=== PATIENT | male | born 1945 | race Caucasian/White ===

== ENCOUNTER 2021-09-21 10:28 | Emergency (ER) | payer MEDICARE, BC ==
[~2021-09-21] VITALS: Ht 177.8 cm; Wt 80.7 kg
--- NOTE | 2021-09-21 10:30 | NUR ---
Patient ambulatory, alert and orientedx4 with complaints of palpitations this morning. Denies nausea/vomiting,SOB,chest pain. History of Afib and hypertension.
--- NOTE | 2021-09-21 10:31 | NUR ---
MD at bedside, medical screening exam in progress.
[2021-09-21] MEDS ORDERED: APIX5TAB4 PO (10:54)
[2021-09-21] MEDS ORDERED: PROP150T2 PO (10:54)
[2021-09-21] MEDS ORDERED: ROSU10TA2 PO (10:54)
[2021-09-21] MEDS ORDERED: CLON0.1T PO (10:54)
[2021-09-21] MEDS ORDERED: DILT30TA35 PO (10:54)
[2021-09-21] MEDS ORDERED: DOXY100C5 PO (10:54)
[2021-09-21] MEDS ORDERED: LOSA25TA27 PO (10:54)
[2021-09-21 10:57] LABS: HEMATOCRIT 41.4 % (36.7-47.1); MEAN CORPUSCULAR HEMOGLOBIN 30.9 uug (23.8-33.4); MEAN CORPUSCULAR VOLUME 89.2 fL (73.0-96.2); PLATELET COUNT (AUTO) 215 K/uL (152-348)
[2021-09-21 11:01] LABS: CARBON DIOXIDE 29 mmol/L (21-32); CHLORIDE 105 mmol/L (98-107); CREATININE 1.1 mg/dL (0.6-1.3); GLUCOSE 99 mg/dL (74-106); POTASSIUM 4.7 mmol/L (3.5-5.1); UREA NITROGEN, BLOOD 16 mg/dL (7-18)
--- NOTE | 2021-09-21 11:03 | NUR ---
UA sent to lab.
[2021-09-21 11:14] LABS: ALANINE AMINOTRANSFERASE 19 U/L (16-63); ALKALINE PHOSPHATASE 67 U/L (50-136); ASPARTATE AMINOTRANSFERASE 26 U/L (15-37); BILIRUBIN,DIRECT 0.1 mg/dL (0.0-0.2); BILIRUBIN,TOTAL 0.4 mg/dL (0.2-1.0); TOTAL PROTEIN, SERUM 6.7 g/dL (6.4-8.2)
[2021-09-21 11:17] LABS: *AMPHETAMINE, URINE NEGATIVE (NEGATIVE); *CANNABINOID, URINE POSITIVE (NEGATIVE); *COCCAINE, URINE NEGATIVE (NEGATIVE); *OPIATE, URINE NEGATIVE (NEGATIVE); *PHENCYCLIDINE SCREEN,URINE NEGATIVE (NEGATIVE)
--- NOTE | 2021-09-21 12:02 | NUR ---
Patient discharged to home in stable condition. Written and verbal after care instructions given to patient and family. Patient verbalizes understanding of instructions. Stressed follow up or return to ER for worsening s/s.
[2021-09-21 12:03] VITALS: BP 150/70
== END 2021-09-21 12:05 | disposition home or self-care (01) ==
LOC: ER 10:30
DX: R00.2 Palpitations (principal); R00.1 Bradycardia, unspecified; I10 Essential (primary) hypertension; I48.91 Unspecified atrial fibrillation; Z79.01 Long term (current) use of anticoagulants; Z79.899 Other long term (current) drug therapy
CPT/HCPCS: 36415; 71045; 84484; 85025; 93005; A4663

== ENCOUNTER 2021-10-26 12:41 | Emergency (ER) | payer SELFPAY ==
[~2021-10-26 12:41] MED LIST: APIX5TAB4 PO; CLON0.1T PO; DILT30TA35 PO; DOXY100C5 PO; LOSA25TA27 PO; PROP150T2 PO; ROSU10TA2 PO
--- NOTE | 2021-10-26 12:58 | NUR ---
PT LEFT WITHOUT BEEN TRIAGED.
== END 2021-10-26 13:00 | disposition left against medical advice (07) ==
LOC: ER 12:43
DX: Z53.21 Procedure and treatment not carried out due to patient leaving prior to being seen by health care provider (principal)